=== PATIENT | male | born 1945 | race Caucasian/White ===

== ENCOUNTER → 2017-04-22 | Outpatient (CLI) | payer MEDICARE, BC ==
[2017-04-22 11:03] LABS: BASO % 1 % (0-3); EOS % 2 % (0-3); HEMATOCRIT 34.7 % (39.0-53.0); HEMOGLOBIN 11.2 g/dL (13.0-17.5); LYMPH # 1.7 x10^3/uL (1.0-4.8); LYMPH % 39 % (24-48); MEAN CORPUSCULAR HEMOGLOBIN 34 pg (25-35); MEAN CORPUSCULAR HGB CONC 32 g/dL (31-37); MEAN CORPUSCULAR VOLUME 104 fL (79-100); MONO % 11 % (0-9); NEUT % 48 % (31-73); PLATELET COUNT 232 x10^3/uL (140-400); RED BLOOD COUNT 3.34 x10^6/uL (4.30-5.70); RED CELL DISTRIBUTION WIDTH 15.1 % (11.5-14.5); WHITE BLOOD COUNT 4.3 x10^3/uL (4.0-11.0)
== END | disposition home or self-care (01) ==
LOC: LAB 10:33
PROVIDERS: ATTEND Orthopaedic Surgery
DX: M25.521 Pain in right elbow (principal)
CPT/HCPCS: 36415; 85025; 85651; 86140

== ENCOUNTER 2017-05-01 10:23 | Observation (INO) | payer MEDICARE, BC ==
[2017-05-01] VITALS (7 sets, daily range): BP systolic 112–134; BP diastolic 60–82
[~2017-05-01] VITALS: Ht 188 cm; Wt 93.9 kg
[~2017-05-01 10:23] MED LIST: HYDROmorphone 2 MG/ML VIAL IV PRN; IV RINGERS,LACTATED 1000ML 1,000 ML IV SCH; LIDOCAINE 1% 1 ML SYRINGE. ID PRN; MORPHINE SULFATE 2 MG/ML DISP.SYRIN. IV PRN; ONDANSETRON PF 4 MG/2 ML VIAL. IV PRN; PROCHLORPERAZINE 10 MG/2 ML VIAL. IV PRN; fentaNYL PF VIAL 100 MCG/2 ML VIAL IV PRN
[2017-05-01] MEDS ORDERED: CEPH-264 PO (10:30)
[2017-05-01] MEDS ORDERED: TRAM50TA PO (10:31)
[2017-05-01] MEDS ORDERED: ASPI81TA50 PO (10:31)
[2017-05-01] MEDS ORDERED: LIDOCAINE 2% PF Vial for OR 5 ML VIAL. ONE (11:13)
[2017-05-01] MEDS ORDERED: fentaNYL PF VIAL 100 MCG/2 ML VIAL ONE (11:13)
[2017-05-01] MEDS ORDERED: DEXAMETHASONE SOD PHOS 20 MG/5 ML VIAL. ONE (11:13)
[2017-05-01] MEDS ORDERED: PROPOFOL 20 ML IV ONE (11:13)
[2017-05-01] MEDS ORDERED: ONDANSETRON PF 4 MG/2 ML VIAL. ONE (11:13)
--- NOTE | 2017-05-01 12:16 | PDOC1 ---
History and Physical Date of Admission Date of Admission DATE: 05/01/17 TIME: 12:06 Identification/Chief Complaint Chief Complaint right elbow draining wound Problems: (1) Infection of right olecranon bursa Source Source: Chart review, Patient History of Present Illness History of Present Illness The patient is a 72 year old right hand dominant male who presented to my office with 4 weeks of a draining elbow wound. no erythema, pain, or purulence. We packed the area and had wound care changing packing, as he initally refused operative treatment, "because he has to pick his grandson up from school every day". We ordered labs. crp and esr were elevated, his wbc was normal. He had been on doxycycline from his pcp. I started him on keflex. A week later he returned, the packing looked purulent to me, and i spoke to him again about undergoing debridedment for concern that this was not going to heal on its own, and that he was developing an infection. He agreed and we set up surgery as an outpatient. He understands that he may need to stay in the hospital for a few days to get antibiotics figured out. Past Medical History Past Medical History no pertinent medical history Past Surgical History Past Surgical History right ulnar nerve transposition Family History Family History noncontributory Social History Smoke: <1 pack per day ALCOHOL: none Drugs: None Current Problem List Problems: (1) Infection of right olecranon bursa Current Medications Current Medications Current Medications Ondansetron HCl (Zofran) 4 mg PRN Q6HRS PRN IV NAUSEA/VOMITING; Start 05/01/17 at 07:00; Stop 05/02/17 at 06:59 Fentanyl Citrate (Fentanyl 2ml Vial) 25 mcg PRN Q5MIN PRN IV MILD PAIN; Start 05/01/17 at 07:00; Stop 05/02/17 at 06:59 Fentanyl Citrate (Fentanyl 2ml Vial) 50 mcg PRN Q5MIN PRN IV MODERATE PAIN; Start 05/01/17 at 07:00; Stop 05/02/17 at 06:59 Morphine Sulfate 1 mg PRN Q10MIN PRN IV SEVERE PAIN; Start 05/01/17 at 07:00; Stop 05/02/17 at 06:59 Ringer's Solution 1,000 ml @ 30 mls/hr Q24H IV Last administered on 05/01/17t 11:25; Start 05/01/17 at 07:00; Stop 05/01/17 at 18:59 Lidocaine HCl 2 ml PRN 1X PRN ID PRIOR TO IV START; Start 05/01/17 at 07:00; Stop 05/02/17 at 06:59 Hydromorphone HCl (Dilaudid) 0.5 mg PRN Q10MIN PRN IV SEV PAIN, Second choice; Start 05/01/17 at 07:00; Stop 05/02/17 at 06:59 Prochlorperazine Edisylate (Compazine) 5 mg PACU PRN PRN IV NAUSEA, MRX1; Start 05/01/17 at 07:00; Stop 05/02/17 at 06:59 Dexamethasone Sodium Phosphate (Decadron) 20 mg STK-MED ONCE .ROUTE ; Start at 11:13; Stop 05/01/17 at 11:14; Status DC Ondansetron HCl (Zofran) 4 mg STK-MED ONCE .ROUTE ; Start 05/01/17 at 11:13; Stop 05/01/17 at 11:14; Status DC Propofol 20 ml @ As Directed STK-MED ONCE IV ; Start 05/01/17 at 11:13; Stop at 11:14; Status DC Lidocaine HCl (Lidocaine Pf 2% Vial) 5 ml STK-MED ONCE .ROUTE ; Start 05/01/17 at 11:13; Stop 05/01/17 at 11:14; Status DC Fentanyl Citrate (Fentanyl 2ml Vial) 100 mcg STK-MED ONCE .ROUTE ; Start at 11:13; Stop 05/01/17 at 11:14; Status DC Active Scripts Active Reported Aspir-Low (Aspirin) 81 Mg Tablet.dr 1 Tab PO DAILY Tramadol Hcl 50 Mg Tablet 1 Tab PO BID PRN Keflex (Cephalexin) 500 Mg Capsule 1 Cap PO BID Allergies Allergies: Coded Allergies: Sulfa (Sulfonamide Antibiotics) (Verified Allergy, Intermediate, 05/01/17) ROS General: No: Chills, Night Sweats, Fatigue, Malaise, Appetite, Other Musculoskeletal: Yes Swelling In: (right olecranon bursae) Skin: Yes Other (draining wound right elbow) Physical Exam General: Alert, Oriented X3, Cooperative, No acute distress HEENT: Atraumatic Lungs: Normal air movement Extremities: Normal pulses, Other (Right olecranon with seropurulent drainage coming from a small 3 mm skin disruption over the olecranon tip. indurated over the area. nvi distally. ) Vitals Vitals Vital Signs Date Time Temp Pulse Resp B/P (MAP) Pulse Ox O2 Delivery O2 Flow Rate FiO2 05/01/17 11:15 97.0 80 18 113/66 94 Room Air 97.0 Labs Labs Laboratory Tests Test 05/01/17 11:00 Prothrombin Time 13.0 SEC (11.7-14.0) Prothromb Time International Ratio 1.0 (0.8-1.1) Activated Partial Thromboplast Time 28 SEC (24-38) Laboratory Tests Test 05/01/17 11:00 Prothrombin Time 13.0 SEC (11.7-14.0) Prothromb Time International Ratio 1.0 (0.8-1.1) Activated Partial Thromboplast Time 28 SEC (24-38) Images Images xrays of the right elbow were taken in the office. subcutaneous gas in the olecranon bursae, does not involve the elbow joint. osteophyte formation. no acute fractures or dislocations. VTE Prophylaxis Ordered VTE Prophylaxis Devices: Yes VTE Pharmacological Prophylaxi: No Assessment/Plan Assessment/Plan The patient is a 72 year old right hand dominant male who presented to the office with a draining right olecranon bursae. Labs and exam are consistent with infection. We will proceed with excisional debridement of the sinus tract, olecranon bursae debridement, and culturing of the area. He will be admitted for antibiotics and ID consult. FAMILIA RODRIGUEZ MD May 01, 2017 12:16
[2017-05-01] MEDS ORDERED: ePHEDrine PF IN SALINE 50 MG/5 ML DISP.SYRIN IV ONE (12:46)
[2017-05-01] MEDS ORDERED: BUPIVACAINE-EPI 0.25%-1:200000 MPF 30 ML VIAL. ONE (13:02)
[2017-05-01] MEDS ORDERED: SEVOFLURANE 31 TO 60 MINUTES. IH ONE (13:04)
[2017-05-01] MEDS ORDERED: PHENYLEPHRINE in 0.9% NACL PF 1 MG/10 ML DISP.SYRIN. IV ONE (13:07)
--- NOTE | 2017-05-01 13:23 | PDOC4 ---
Operative Note Operative Note Date of Operation: 05/01/2017 Preoperative Diagnosis: Right elbow septic olecranon bursitis with draining sinus tract Postoperative Diagnosis: same Operation Performed: 1. Excisional Debridement of bone, including epidermis, dermis, subcutaneous tissue, fascia, and muscle, first 20 square cms or less, CPT 93322 2. Excisional Debridement of bone, including epidermis, dermis, subcutaneous tissue, fascia, and muscle, next 20 square cms x 2 Wound size: 8 cm x 2 cm. SURGEON: Familia Rodriguez MD HOG RINGER: none ANESTHESIA: General ESTIMATED BLOOD LOSS: 10 CC IMPLANTS: NONE SURGICAL INDICATION: The patient is a 72 year old right-hand dominant male with a draining sinus over his right elbow for the past month. He has been on antibiotics already for the past two weeks, the skin isn't healing/ the erythema and drainage is getting worse. He has minimal elbow pain, + swelling and an elevated crp/ esr and has failed conservative treatment. He presents now for the above stated procedure after the risks and benefits were explained in the clinic. DESCRIPTION OF PROCEDURE: The patient was identified, marked, and the procedure was reconfirmed by myself prior to taking them to the operating room. The patient is receiving oral keflex at home prior to the procedure. His preop ancef was held until cultures were taken. The patient was positioned appropriately and underwent adequate general anesthesia. The right arm was prepped and draped in a standard surgical fashion. The skin over the olecranon was incised and a 1 cm area of draining sinus tract was ellipsed out and back to healthy bleeding tissue. No dean purulence was encountered, however there was a lot of fibrinous tissue adherent over the fascia. It was excised and debrided sharply with a knife. He also had bony excrescences from what appeared to be an old triceps partial avulsion injury. This bone was cored out of the tendon and the olecranon tip was smoothed with a currette. cultures were sent. The area was debrided to bone of all reactive tissue that had inflammatory or necrotic nature, with a small ronguer and currette. 6L of sterile saline were run through the area with low pressure irrigation. Then the area was debrided with a curette, ronguer, and knife until the necrotic/ fibrinous tissue was removed and a viable, bleeding, healthy tissue bed was present. The wound was closed with 4-0 monocryl and the skin was reapproximated with 3-0 ethilon in horizontal mattress sutures. There was not area for packing, so I closed him primarily. The tourniquet was taken down at 35 minutes, hemostasis was obtained and he was covered in sterile dressings. DISPOSITION: The patient was taken to the recovery room awake and in stable condition. COMPLICATIONS: None Post-operative Plan: follow up cultures. Consult ID for antibiotic reccs. dispo home 1-2 days depending on ID reccs. FAMILIA RODRIGUEZ MD May 01, 2017 13:23
[2017-05-01] MEDS ORDERED: ceFAZolin SODIUM 1 GM in IV NORMAL SALINE 100ML 100 ML IV SCH (13:30)
[2017-05-01] MEDS ORDERED: ACETAMINOPHEN 500 MG TABLET PO PRN (13:45)
[2017-05-01] MEDS ORDERED: traMADol 50 MG TABLET PO PRN (13:45)
[2017-05-01] MEDS: LINEZOLID 600 MG TABLET PO SCH ×2 (15:08→20:00)
[2017-05-01] MEDS: PIPERACILLIN/TAZOBACTAM 3.375 GM in IV NORMAL SALINE 50ML 50 ML IV SCH ×3 (15:08→23:38)
[2017-05-01 16:21] LABS: CALCIUM 8.6 mg/dL (8.5-10.1); CREATININE 0.8 mg/dL (0.7-1.3); GFR 95.6; POTASSIUM 4.1 mmol/L (3.5-5.1)
--- NOTE | 2017-05-02 01:22 | ACF ---
Admission Forms Criteria SKIN AND WOUND CARE ( Place 'X' for any and all applicable criteria): Ongoing inpatient care may be indicated for skin complications with 1 or more of the following [ ]I. Hemodynamic Instability((2)(8)(9)(28)(42)(43)(44) [ ]II. Dehydration that is severe or persistent [ ]III. Severe pain requiring acute inpatient management [X]IV. Inpatient treatment needed as indicated by 1 or more of the following: Pressure ulcer closure procedures [ ] i. Skin grafting(45) [ ]ii. Opthalmic surgical procedure (eg amniotic membrane grafting) [ ]iii. Serial ocular examinations [X]iv. Wound debridement [ ]v. Dressing change under general anesthesia [ ]vi. Diverting colostomy [ ]vii. Intravenous immunosuppressant therapy [ ]V. Significant burn as indicated by 1 or more of the following [ ]i. Full thickness burn greater than 10% of body surface area [ ]ii. Any burn greater than 15% of body surface area [ ]iii. Serious burn of hand, foot, genitals, face or joint [ ]iv. Burn accompanied by other significant medical problems or injuries (eg altered mental [ ]v. status, arrhythmia, inability to maintain oral hydration, significant wound) [ ]vi. Serious chemical burn [ ]vii. High voltage (e.g. 1000 volts or more) electrical burn [ ]viii. Circumferential burn [ ] . Skin infection requiring inpatient care as indicated by ALL of the following: [ ]a) Infection suspected as indicated by 1 or more of the following: [ ] i. Excessive drainage [ ]ii. Pus [ ]iii. Increased redness [ ]iv. Foul Odor [ ]v. Fever [ ]b) Clinically significant infection as indicated by 1 or more of the following: [ ]i. Vital signs abnormality [ ]ii. Persistantly high temperatures greater than 103.1 degrees F (39.5degrees C)(Oral) [ ]iii. Unexplained metabolic acidosis (eg lactic acidosis) [ ]iv. Evidence of end organ dysfunction (eg rising creatinine, myocardial ischemia, liver function tests) [ ]v. Hypoxemia [ ]vi. Tachypnea [ ]vii. Altered mental status [ ]viii. Dehydration that is severe or persistent Extended stay beyond goal length of stay for primary condition may be needed until ALL of the following are present(1)(2)(13)(21)(27): [ ]a) Hemodynamic instability [ ]b) Volume status acceptable [ ]c) Mental status at baseline [ ]d) Tissue necrosis absent or treatment plan manageable at lower level of care [ ]e) Fever absent or temperature as expected for disease process and acceptable for next level of care [ ]f) Hypoxemia present [ ]g) Tachypnea present [ ]h) Fistulas, tunneling, or underlying deep tissue infection absent or treated [ ]i) Purulence and tissue breakdown absent or improved [ ]j) Ulcer surgical repair absent or healing without complications [ ]k) Wound infection absent or manageable at lower level of care [ ]l) Comorbidities absent or manageable at lower level of care The original [facility] [employer] content created by [facility] [employer] has been revised. The portions of the content which have been revised are identified through the use of italic text, and [facility] has neither reviewed nor approved the modified material. All other unmodified content is copyright [facility]. Please see references footnoted in the original [facility] edition 2014 Admission Criteria Met?: Yes MARQUES GIBSON May 02, 2017 01:22
[2017-05-02 03:00] VITALS: BP 124/58
[2017-05-02 05:36] LABS: CALCIUM 8.4 mg/dL (8.5-10.1); GFR 73.9; POTASSIUM 4.4 mmol/L (3.5-5.1)
[2017-05-02] MEDS: PIPERACILLIN/TAZOBACTAM 3.375 GM in IV NORMAL SALINE 50ML 50 ML IV SCH (05:44)
[2017-05-02 07:20] VITALS: BP 128/73
--- NOTE | 2017-05-02 08:07 | PDOC ---
Infectious Disease Note ROS ROS Vital Sign Vital Signs Vital Signs Date Time Temp Pulse Resp B/P (MAP) Pulse Ox O2 Delivery O2 Flow Rate FiO2 05/02/17 03:00 97.9 74 20 124/58 (80) 92 Room Air 97.9 05/01/17 19:00 2.0 Labs Lab Laboratory Tests Test 05/01/17 11:00 05/01/17 16:05 05/02/17 03:40 Prothrombin Time 13.0 SEC (11.7-14.0) Prothromb Time International Ratio 1.0 (0.8-1.1) Activated Partial Thromboplast Time 28 SEC (24-38) Nasal Screen MRSA (PCR) Negative (Negative) Sodium Level 136 mmol/L (136-145) 135 mmol/L (136-145) Potassium Level 4.1 mmol/L (3.5-5.1) 4.4 mmol/L (3.5-5.1) Chloride Level 102 mmol/L (98-107) 100 mmol/L (98-107) Carbon Dioxide Level 27 mmol/L (21-32) 26 mmol/L (21-32) Anion Gap 7 (6-14) 9 (6-14) Blood Urea Nitrogen 21 mg/dL (8-26) 18 mg/dL (8-26) Creatinine 0.8 mg/dL (0.7-1.3) 1.0 mg/dL (0.7-1.3) Estimated GFR (Cockcroft-Gault) 95.6 73.9 Glucose Level 138 mg/dL (70-99) 157 mg/dL (70-99) Calcium Level 8.6 mg/dL (8.5-10.1) 8.4 mg/dL (8.5-10.1) Objective Assessment Right bursitis s/o I and D 05/01 Sulfa allergy Hyperglycemia Tobacco abuse Plan Plan of Care Instituted Zyvox/Zosyn 05/01 D/w micro this am - gram stain neg and no cults yet Check co-pay for Zyvox Could d/c home with zyvox 600 mg po BID/Augmentin 875 mg po BID for 10 days and F/u this coming week in ID office if cleared by Dr. Day [phone] # [id number] DIEGO SPENCER MD May 02, 2017 08:07
[2017-05-02 08:18] LABS: BASO % 0 % (0-3); EOS % 0 % (0-3); HEMOGLOBIN 10.9 g/dL (13.0-17.5); LYMPH # 0.7 x10^3/uL (1.0-4.8); LYMPH % 12 % (24-48); MEAN CORPUSCULAR HEMOGLOBIN 34 pg (25-35); MEAN CORPUSCULAR HGB CONC 33 g/dL (31-37); MEAN CORPUSCULAR VOLUME 102 fL (79-100); MONO % 6 % (0-9); NEUT % 82 % (31-73); PLATELET COUNT 219 x10^3/uL (140-400); RED BLOOD COUNT 3.25 x10^6/uL (4.30-5.70); RED CELL DISTRIBUTION WIDTH 14.6 % (11.5-14.5); WHITE BLOOD COUNT 5.5 x10^3/uL (4.0-11.0)
[2017-05-02] MEDS: LINEZOLID 600 MG TABLET PO SCH (09:35)
--- NOTE | 2017-05-02 09:56 | PDOC ---
PROGRESS NOTES Subjective Subjective Problems overnight: No acute events overnight. ID has seen. So far cultures and gram stain are negative. Pain is well controlled. No nausea/ vomiting/ chest pain, shortness of breath. Objective Vital Signs Vital Signs Date Time Temp Pulse Resp B/P (MAP) Pulse Ox O2 Delivery O2 Flow Rate FiO2 05/02/17 07:20 97.7 69 18 128/73 (91) 92 97.7 05/02/17 03:00 Room Air 05/01/17 19:00 2.0 Physical Exam RIGHT UPPER EXTREMITY : dressing clean, dry, and intact in jeanne bandage. neurovascularly intact distally. Labs Laboratory Tests Test 05/01/17 11:00 05/01/17 16:05 05/02/17 03:40 Prothrombin Time 13.0 SEC (11.7-14.0) Prothromb Time International Ratio 1.0 (0.8-1.1) Activated Partial Thromboplast Time 28 SEC (24-38) Nasal Screen MRSA (PCR) Negative (Negative) Sodium Level 136 mmol/L (136-145) 135 mmol/L (136-145) Potassium Level 4.1 mmol/L (3.5-5.1) 4.4 mmol/L (3.5-5.1) Chloride Level 102 mmol/L (98-107) 100 mmol/L (98-107) Carbon Dioxide Level 27 mmol/L (21-32) 26 mmol/L (21-32) Anion Gap 7 (6-14) 9 (6-14) Blood Urea Nitrogen 21 mg/dL (8-26) 18 mg/dL (8-26) Creatinine 0.8 mg/dL (0.7-1.3) 1.0 mg/dL (0.7-1.3) Estimated GFR (Cockcroft-Gault) 95.6 73.9 Glucose Level 138 mg/dL (70-99) 157 mg/dL (70-99) Calcium Level 8.6 mg/dL (8.5-10.1) 8.4 mg/dL (8.5-10.1) White Blood Count 5.5 x10^3/uL (4.0-11.0) Red Blood Count 3.25 x10^6/uL (4.30-5.70) Hemoglobin 10.9 g/dL (13.0-17.5) Hematocrit 33.0 % (39.0-53.0) Mean Corpuscular Volume 102 fL (79-100) Mean Corpuscular Hemoglobin 34 pg (25-35) Mean Corpuscular Hemoglobin Concent 33 g/dL (31-37) Red Cell Distribution Width 14.6 % (11.5-14.5) Platelet Count 219 x10^3/uL (140-400) Neutrophils (%) (Auto) 82 % (31-73) Lymphocytes (%) (Auto) 12 % (24-48) Monocytes (%) (Auto) 6 % (0-9) Eosinophils (%) (Auto) 0 % (0-3) Basophils (%) (Auto) 0 % (0-3) Neutrophils # (Auto) 4.5 x10^3uL (1.8-7.7) Lymphocytes # (Auto) 0.7 x10^3/uL (1.0-4.8) Monocytes # (Auto) 0.3 x10^3/uL (0.0-1.1) Eosinophils # (Auto) 0.0 x10^3/uL (0.0-0.7) Basophils # (Auto) 0.0 x10^3/uL (0.0-0.2) Laboratory Tests Test 05/01/17 11:00 05/01/17 16:05 05/02/17 03:40 Prothrombin Time 13.0 SEC (11.7-14.0) Prothromb Time International Ratio 1.0 (0.8-1.1) Activated Partial Thromboplast Time 28 SEC (24-38) Nasal Screen MRSA (PCR) Negative (Negative) Sodium Level 136 mmol/L (136-145) 135 mmol/L (136-145) Potassium Level 4.1 mmol/L (3.5-5.1) 4.4 mmol/L (3.5-5.1) Chloride Level 102 mmol/L (98-107) 100 mmol/L (98-107) Carbon Dioxide Level 27 mmol/L (21-32) 26 mmol/L (21-32) Anion Gap 7 (6-14) 9 (6-14) Blood Urea Nitrogen 21 mg/dL (8-26) 18 mg/dL (8-26) Creatinine 0.8 mg/dL (0.7-1.3) 1.0 mg/dL (0.7-1.3) Estimated GFR (Cockcroft-Gault) 95.6 73.9 Glucose Level 138 mg/dL (70-99) 157 mg/dL (70-99) Calcium Level 8.6 mg/dL (8.5-10.1) 8.4 mg/dL (8.5-10.1) White Blood Count 5.5 x10^3/uL (4.0-11.0) Red Blood Count 3.25 x10^6/uL (4.30-5.70) Hemoglobin 10.9 g/dL (13.0-17.5) Hematocrit 33.0 % (39.0-53.0) Mean Corpuscular Volume 102 fL (79-100) Mean Corpuscular Hemoglobin 34 pg (25-35) Mean Corpuscular Hemoglobin Concent 33 g/dL (31-37) Red Cell Distribution Width 14.6 % (11.5-14.5) Platelet Count 219 x10^3/uL (140-400) Neutrophils (%) (Auto) 82 % (31-73) Lymphocytes (%) (Auto) 12 % (24-48) Monocytes (%) (Auto) 6 % (0-9) Eosinophils (%) (Auto) 0 % (0-3) Basophils (%) (Auto) 0 % (0-3) Neutrophils # (Auto) 4.5 x10^3uL (1.8-7.7) Lymphocytes # (Auto) 0.7 x10^3/uL (1.0-4.8) Monocytes # (Auto) 0.3 x10^3/uL (0.0-1.1) Eosinophils # (Auto) 0.0 x10^3/uL (0.0-0.7) Basophils # (Auto) 0.0 x10^3/uL (0.0-0.2) Imaging none Assessment Assessment POD# 1 S/P I &D right olecranon bursae with sinus tract excision Problems: (1) Infection of right olecranon bursa Plan Plan of Care The patient is currently doing well. Gram stain and cultures are negative. ID is seeing and making reccs re antibiotics. Possibly home later today with oral meds Encouraged smoking cessation. He has a follow-up in my appointment next week to take out his sutures. Pain control FAMILIA RODRIGUEZ MD May 02, 2017 09:56
--- NOTE | 2017-05-02 09:57 | DISCH ---
DISCHARGE INSTRUCTIONS Condition on Discharge Condition on Discharge: Stable Activity After Discharge Activity Instructions for Disc: Activity as tolerated, Avoid exertion Bathing Instructions: Shower-keep dressing dry, No Tub Bath until see Lifting Instructions after Dis: No heavy lifting, No pulling or pushing, Do not lift >10 pounds Weight Bearing Status after Di: As tolerated Diet after Discharge Diet after Discharge: Regular Wound Incision Care Wound/Incision Care: Ice to area for comfort, Do not change dressing Contacting the DRBrian after DC Call your doctor for: Concerns you may have Treatment/Equipment after DC Adaptive Equipment Issued: None FAMILIA RODRIGUEZ MD May 02, 2017 09:57
--- NOTE | 2017-05-02 10:37 | PDOC3 ---
Discharge Summary Visit Information Date of Admission: May 01, 2017 Date of Discharge: May 02, 2017 Admitting Diagnosis: Right elbow septic olecranon bursitis and draining sinus Brief Hospital Course Allergies Allergies Coded Allergies Type Severity Reaction Last Updated Verified Sulfa (Sulfonamide Antibiotics) Allergy Intermediate 05/01/17 Yes Vital Signs Vital Signs Date Time Temp Pulse Resp B/P (MAP) Pulse Ox O2 Delivery O2 Flow Rate FiO2 05/02/17 07:20 97.7 69 18 128/73 (91) 92 97.7 05/02/17 03:00 Room Air 05/01/17 19:00 2.0 Lab Results Laboratory Tests Test 05/01/17 11:00 05/01/17 16:05 05/02/17 03:40 Prothrombin Time 13.0 SEC (11.7-14.0) Prothromb Time International Ratio 1.0 (0.8-1.1) Activated Partial Thromboplast Time 28 SEC (24-38) Nasal Screen MRSA (PCR) Negative (Negative) Sodium Level 136 mmol/L (136-145) 135 mmol/L (136-145) Potassium Level 4.1 mmol/L (3.5-5.1) 4.4 mmol/L (3.5-5.1) Chloride Level 102 mmol/L (98-107) 100 mmol/L (98-107) Carbon Dioxide Level 27 mmol/L (21-32) 26 mmol/L (21-32) Anion Gap 7 (6-14) 9 (6-14) Blood Urea Nitrogen 21 mg/dL (8-26) 18 mg/dL (8-26) Creatinine 0.8 mg/dL (0.7-1.3) 1.0 mg/dL (0.7-1.3) Estimated GFR (Cockcroft-Gault) 95.6 73.9 Glucose Level 138 mg/dL (70-99) 157 mg/dL (70-99) Calcium Level 8.6 mg/dL (8.5-10.1) 8.4 mg/dL (8.5-10.1) White Blood Count 5.5 x10^3/uL (4.0-11.0) Red Blood Count 3.25 x10^6/uL (4.30-5.70) Hemoglobin 10.9 g/dL (13.0-17.5) Hematocrit 33.0 % (39.0-53.0) Mean Corpuscular Volume 102 fL (79-100) Mean Corpuscular Hemoglobin 34 pg (25-35) Mean Corpuscular Hemoglobin Concent 33 g/dL (31-37) Red Cell Distribution Width 14.6 % (11.5-14.5) Platelet Count 219 x10^3/uL (140-400) Neutrophils (%) (Auto) 82 % (31-73) Lymphocytes (%) (Auto) 12 % (24-48) Monocytes (%) (Auto) 6 % (0-9) Eosinophils (%) (Auto) 0 % (0-3) Basophils (%) (Auto) 0 % (0-3) Neutrophils # (Auto) 4.5 x10^3uL (1.8-7.7) Lymphocytes # (Auto) 0.7 x10^3/uL (1.0-4.8) Monocytes # (Auto) 0.3 x10^3/uL (0.0-1.1) Eosinophils # (Auto) 0.0 x10^3/uL (0.0-0.7) Basophils # (Auto) 0.0 x10^3/uL (0.0-0.2) Laboratory Tests Test 05/01/17 11:00 05/01/17 16:05 05/02/17 03:40 Prothrombin Time 13.0 SEC (11.7-14.0) Prothromb Time International Ratio 1.0 (0.8-1.1) Activated Partial Thromboplast Time 28 SEC (24-38) Nasal Screen MRSA (PCR) Negative (Negative) Sodium Level 136 mmol/L (136-145) 135 mmol/L (136-145) Potassium Level 4.1 mmol/L (3.5-5.1) 4.4 mmol/L (3.5-5.1) Chloride Level 102 mmol/L (98-107) 100 mmol/L (98-107) Carbon Dioxide Level 27 mmol/L (21-32) 26 mmol/L (21-32) Anion Gap 7 (6-14) 9 (6-14) Blood Urea Nitrogen 21 mg/dL (8-26) 18 mg/dL (8-26) Creatinine 0.8 mg/dL (0.7-1.3) 1.0 mg/dL (0.7-1.3) Estimated GFR (Cockcroft-Gault) 95.6 73.9 Glucose Level 138 mg/dL (70-99) 157 mg/dL (70-99) Calcium Level 8.6 mg/dL (8.5-10.1) 8.4 mg/dL (8.5-10.1) White Blood Count 5.5 x10^3/uL (4.0-11.0) Red Blood Count 3.25 x10^6/uL (4.30-5.70) Hemoglobin 10.9 g/dL (13.0-17.5) Hematocrit 33.0 % (39.0-53.0) Mean Corpuscular Volume 102 fL (79-100) Mean Corpuscular Hemoglobin 34 pg (25-35) Mean Corpuscular Hemoglobin Concent 33 g/dL (31-37) Red Cell Distribution Width 14.6 % (11.5-14.5) Platelet Count 219 x10^3/uL (140-400) Neutrophils (%) (Auto) 82 % (31-73) Lymphocytes (%) (Auto) 12 % (24-48) Monocytes (%) (Auto) 6 % (0-9) Eosinophils (%) (Auto) 0 % (0-3) Basophils (%) (Auto) 0 % (0-3) Neutrophils # (Auto) 4.5 x10^3uL (1.8-7.7) Lymphocytes # (Auto) 0.7 x10^3/uL (1.0-4.8) Monocytes # (Auto) 0.3 x10^3/uL (0.0-1.1) Eosinophils # (Auto) 0.0 x10^3/uL (0.0-0.7) Basophils # (Auto) 0.0 x10^3/uL (0.0-0.2) Brief Hospital Course 72 old male patient who presented with right elbow septic olecranon bursitis with draining sinus tract. The patient underwent right elbow olecranon bursae with sinus tract excision under general anesthesia the day of admission. Perioperative antibiotics were used. Postoperatively infectious disease and case management were consulted. The patient progressed and is stable for discharge to home with oral antibiotics, Zyvox and Augmentin, per infectious disease. Discharge Information Condition at Discharge: Stable Follow Up: Weeks (1) Disposition/Orders: D/C to Home Scheduled Aspirin (Aspir-Low), 1 TAB PO DAILY, (Reported) Cephalexin (Keflex), 1 CAP PO BID, (Reported) Scheduled PRN Tramadol Hcl (Tramadol Hcl), 1 TAB PO BID PRN for PAIN, (Reported) Patient Instructions Patient Instructions Patient Instructions Please take all antibiotics as instructed. Keep dressing clean, dry, and intact. Followup with Dr. Day on 05/13/17. Followup with Dr. Mendieta next week. SALINAS BYRNE May 02, 2017 10:37
[2017-05-02 10:56] VITALS: BP 124/52
--- NOTE | 2017-05-02 16:08 | CONS ---
DATE OF CONSULTATION: 05/02/2017 DATE OF SERVICE: 05/02/2017 PATIENT LOCATION: Room #406. REQUESTING PHYSICIAN: Dr. Day. REASON FOR CONSULTATION: Right upper elbow bursitis. HISTORY OF PRESENT ILLNESS: The patient is a pleasant 72-year-old gentleman without significant past medical history aside from tobacco abuse. He states about 3-4 weeks ago, he developed some swelling on his right elbow. He denies lying on it or working on it for an extended period of time, but states he did see a yellow jacket around the area and is uncertain if he did get stung or not. He has some numbness in his elbow secondary to previous nerve surgery. He has been seen by his primary care physician and has received 2 rounds of antibiotics. One of which was Bactrim, which caused some hives and swelling, and also had been on some cephalexin and doxycycline without much improvement. He had been seen in Dr. Day's office and the area had been packed, but because he had ongoing drainage and some questionable purulence, he was taken to the operating room by Dr. Day on 05/01/2017. According to the operative note, there is a 1 cm area of draining sinus track that was ____ out to healthy bleeding tissue. There is no dean purulence, however, there was a lot of fibrous tissue that was excised and debrided. The area was debrided to bone of all reactive tissue of inflammatory necrotic nature and the wound was closed. Cultures were obtained. I discussed with micro this morning and there is no growth. Gram stain was negative. I was consulted yesterday and instituted Zosyn and Zyvox. Currently, the patient is sitting upright on the side of his bed, states he is feeling fairly well. He denied any active fevers, chills, sweats prior to coming in, he had no headaches, sinus issues, sore throat or cough or chest pain. No nausea, vomiting, diarrhea, dysuria, frequency, urgency. No rashes or trauma. PAST MEDICAL HISTORY: Positive for previous GI bleed, also had olecranon problems and right total knee osteoarthritis. PAST SURGICAL HISTORY: Positive for tonsillectomy, right upper extremity ulnar nerve procedure, also carpal tunnel surgery, vasectomy, and right total knee arthroplasty. REVIEW OF SYSTEMS: Otherwise negative except as mentioned above. ALLERGIES: Listed as SULFA which causes hives. SOCIAL HISTORY: He is a smoker. He denies any gross alcohol abuse. FAMILY HISTORY: Noncontributory. CURRENT MEDICATIONS: Include: He did receive some cefazolin, Zosyn, Zyvox, Tylenol, fentanyl, morphine, tramadol. Other meds are available and I have reviewed in the chart. PHYSICAL EXAMINATION: VITAL SIGNS: He has been afebrile, temperature 97.7, pulse 69, respirations 18, blood pressure 128/73, satting 96% on room air. CONSTITUTIONAL: He is a pleasant gentleman. He is cooperative, in no acute distress, sitting on the side of the bed. HEENT: Pupils are equal and reactive. He has early cataracts. Normal conjunctivae. Oral cavity, pharynx is clear. NECK: Supple, no JVD. LUNGS: Clear to auscultation bilaterally. HEART: S1, S2. No murmur. ABDOMEN: Soft, nontender, nondistended, positive bowel sounds. EXTREMITIES: Without clubbing, cyanosis or gross edema. His right elbow is heavily dressed with a clean bandage. SKIN: Without signs of rash. Warm to touch. NEUROLOGIC: Nonfocal, moves all extremities. PSYCHIATRIC: Affect is pleasant. IV site is clean. LABORATORY DATA: White count 5.5, hemoglobin of 10.9, platelets of 219 with 82 segs, 12 lymphs. Creatinine is 1, glucose was 157. MRSA screen was negative. Cultures reviewed in history of present illness. There is no Radiology. IMPRESSION: 1. Right bursitis status post incision and drainage on 05/01/2017. Gram stain has been negative. Cultures thus far are early, but they are negative as well. 2. Sulfa allergy. 3. Hyperglycemia. 4. Tobacco abuse. RECOMMENDATIONS: Again, I instituted Zyvox and Zosyn on 05/01, I again discussed with Micro this morning with Gram stain and cultures are all negative. At this point, we will check a co-pay for Zyvox and could discharge home with Zyvox 600 mg p.o. b.i.d. and Augmentin 875 mg p.o. ____ for 10 days. Follow up this coming week in the ID office if cleared by Dr. Day. Thank you for allowing me to participate in this patient's care. If you have any questions, please do not hesitate to contact me. DIEGO SPENCER MD DR: LILIAN/joseluis JOB#: [id number] / [id number]
== END 2017-05-02 12:40 | disposition home or self-care (01) ==
LOC: OPSVCIP 10:23 → INTOOBSV 10:23 → 4 NORTH 14:04
PROVIDERS: ADMIT Orthopaedic Surgery; ATTEND Orthopaedic Surgery
DX: M71.129 Other infective bursitis, unspecified elbow (principal); M17.9 Osteoarthritis of knee, unspecified; F17.210 Nicotine dependence, cigarettes, uncomplicated; R73.9 Hyperglycemia, unspecified; Z88.2 Allergy status to sulfonamides; Z96.651 Presence of right artificial knee joint
CPT/HCPCS: 11044; 11047; 36415; 80048; 85025; 85610; 85730; 87071; 87075; 87102; 87116; 87186; 87205; 87641; 96365; 96375; 96376; G0378; G0379; J0690; J1100; J2370; J2405; J2543; J2704; J3010; J7120; J2001